=== PATIENT | male | born 1995 | race Caucasian/White ===

== ENCOUNTER 2024-06-12 20:13 | Emergency (ER) | payer OTHER, SELFPAY ==
[2024-06-12 20:17] VITALS: BP 130/80
[2024-06-12 20:32] LABS: % Basophils 0.6 % (0-2); % Eosinophils 0.6 % (0-6); % Immature Granulocytes 0.4 % (0-0.5); % Lymphocytes 26.7 % (20.5-51.1); % Monocytes 6.2 % (1.7-9.3); % Neutrophils 65.5 % (42.2-75.2); Absolute Basophils 0.1 10^3/uL (0-0.2); Absolute Eosinophils 0.1 10^3/uL (0-0.7); Absolute Lymphocytes 2.9 10^3/uL (1.2-3.4); Absolute Monocytes 0.7 10^3/uL (0.1-0.6); Absolute Neutrophils 7.2 10^3/uL (1.4-6.5); Hematocrit 42.9 % (39.0-52.0); Hemoglobin 14.9 g/dL (13.0-18.0); Mean Corp Hgb Conc. 34.7 g/dL (33.0-37.0); Mean Corpuscular Hgb 27.6 pg (27.0-31.0); Mean Corpuscular Volume 79.4 fL (80.0-94.0); Mean Platelet Volume 9.4 fL (7.4-10.4); Nucleated Red Blood Cells % 0 % (-); Platelet Count 310 10^3/uL (130-400); Red Cell Dist. Width 14.5 % (11.5-14.5)
[2024-06-12 20:45] LABS: ALT (SGPT) 14 U/L (0-50); AST (SGOT) 18 U/L (17-59); Albumin 5.1 g/dl (3.5-5.0); Alkaline Phosphatase 89 U/L (38-126); Blood Urea Nitrogen 28 mg/dl (9-20); Calcium 10.5 mg/dl (8.4-10.2); Carbon Dioxide 24 mmol/L (22-30); Chloride 101 mmol/L (98-107); Glucose 95 mg/dl (70-99); Lipase 114 U/L (23-300); Potassium 3.9 mmol/L (3.5-5.1); Sodium 139 mmol/L (135-145); Total Bilirubin 1.1 mg/dl (0.2-1.3); eGFR > 60.00
--- NOTE | 2024-06-12 22:53 | ED.GENMED ---
History of Present Illness
<LILIANA Marie (Lenka) - Last Filed: 06/12/24 23:37>
General
Chief Complaint: Dehydration Symptoms
Source: patient and family (uncle)
Exam Limitations: none
Time Seen by Provider: 06/12/24 22:07
Nursing documentation reviewed up to this point in time: agreed with
History of Present Illness
History of Present Illness:
Pt is a 28 yo male with PMHx of bipolar who presents to the ED for dehydration and N/V x 48 hours. Per pt, 2d ago he got sushi takeout with his family and a few hours later developed nausea and NBNB emesis, non-bloody diarrhea, and abdominal
cramping that has been unrelenting. He states that he has been unable to keep Gatorade, water, or food down without vomiting. The diarrhea lasted the first day, but now pt has not passed stool or urinated x 24 hours. He has been burping, but has not
passed gas. His abdominal pain is dull and diffuse throughout all 4 quadrants. He admits to new onset blurry vision x 48 hrs. He denies rash, fever, chills, myalgias, throat pain, throat fullness, chest pain, back or flank pain. His aunt, who also
ate the sushi, intiially had similar symptoms which have since resolved.
Past History
<LILIANA Marie (Lenka) - Last Filed: 06/12/24 23:37>
Past History
ED Past Medical History: Psychiatric (Bipolar disease, takes Lamictal, Wellbutrin, Concerta and Vraylar) and Other ('skinny esophagus')
ED Past Surgical History: None
Social History
Tobacco: Non-smoker
Alcohol: Occasional
Drug: None
Living: with family
Employment: Not employed
Family History
Family History: Other (noncontributory)
Phy Exam
<LILIANA Marie (Lenka) - Last Filed: 06/12/24 23:37>
General Physical Exam
General Presentation: mild distress
General age: appears stated age
General Skin: warm, dry and ashen
General Habitus: normal
General Mental: alert
General Hydration: dry mucous membranes
Cardiovascular Exam
Cardiovascular Exam: regular rate/rhythm, no edema, no gallop, no murmur and normal peripheral pulses
Pulmonary Exam
Pulmonary Exam: lungs clear, no respiratory distress, no rales, no rhonchi, no wheezing and no cough
Gastrointestinal Exam
Gastrointestinal Exam: normal bowel sounds, soft, non distended and tender (diffuse tenderness to all four quadrants)
Neurological Exam
Neurological Exam: alert, oriented x3 and speech normal
Skin Exam
Skin Exam: no rash
Course
<Gina Dawson (Lenka) [facility] - Last Filed: 06/12/24 23:37>
Orders/Labs/Results
Orders:
Orders
06/12/24 20:24
CMP [Comprehensive Metabolic Panel] Urgent
Complete Blood Count/With Diff Urgent
Lipase Urgent
06/12/24 22:47
Ondansetron Injectable [Zofran] 4 mg .ROUTE .STK-MED ONE
06/12/24 23:31
Ondansetron Injectable [Zofran] 4 mg IV NOW STA
Abnormal Lab Results
06/12/24
20:24
WBC 11.0 H 10^3/uL
(4.8-10.8)
MCV 79.4 L fL
(80.0-94.0)
Absolute Neuts (auto) 7.2 H 10^3/uL
(1.4-6.5)
Absolute Monos (auto) 0.7 H 10^3/uL
(0.1-0.6)
BUN 28 H mg/dl
(9-20)
Calcium 10.5 H mg/dl
(8.4-10.2)
Albumin 5.1 H g/dl
(3.5-5.0)
06/12/24 20:24
06/12/24 20:24
Vital Signs
Initial and Last Documented VS:
Initial Vital Signs
Temp Pulse Resp BP Pulse Ox
98.1 F 110 22 130/80 98
06/12/24 20:17 06/12/24 20:17 06/12/24 20:17 06/12/24 20:17 06/12/24 20:17
Last Documented Vital Signs
Temp Pulse Resp BP Pulse Ox
98.1 F 110 22 130/80 98
06/12/24 20:17 06/12/24 20:17 06/12/24 20:17 06/12/24 20:17 06/12/24 20:17
<Kasi Cervantes, DO - Last Filed: 06/13/24 01:40>
Orders/Labs/Results
Orders:
Orders
06/12/24 20:24
CMP [Comprehensive Metabolic Panel] Urgent
Complete Blood Count/With Diff Urgent
Lipase Urgent
06/12/24 22:47
Ondansetron Injectable [Zofran] 4 mg .ROUTE .STK-MED ONE
06/12/24 23:31
Ondansetron Injectable [Zofran] 4 mg IV NOW STA
Abnormal Lab Results
06/12/24
20:24
WBC 11.0 H 10^3/uL
(4.8-10.8)
MCV 79.4 L fL
(80.0-94.0)
Absolute Neuts (auto) 7.2 H 10^3/uL
(1.4-6.5)
Absolute Monos (auto) 0.7 H 10^3/uL
(0.1-0.6)
BUN 28 H mg/dl
(9-20)
Calcium 10.5 H mg/dl
(8.4-10.2)
Albumin 5.1 H g/dl
(3.5-5.0)
06/12/24 20:24
06/12/24 20:24
Vital Signs
Initial and Last Documented VS:
Initial Vital Signs
Temp Pulse Resp BP Pulse Ox
98.1 F 110 22 130/80 98
06/12/24 20:17 06/12/24 20:17 06/12/24 20:17 06/12/24 20:17 06/12/24 20:17
Last Documented Vital Signs
Temp Pulse Resp BP Pulse Ox
98.1 F 110 22 130/80 98
06/12/24 20:17 06/12/24 20:17 06/12/24 20:17 06/12/24 20:17 06/12/24 20:17
<LILIANA Marie (Lenka) - Last Filed: 06/12/24 23:37>
MDM/Problems Addressed
Differential Diagnosis Includes:
DDx: viral vs bacterial vs parasitic gastroenteritis vs hypercalcemia
Given the onset of sx after consuming sushi and family contact with similar symptoms, plus watery diarrhea, N/V, inability to maintain PO intake or hydration, pt likely has gastritis. Since the diarrhea with nonbloody, there is less concern for
salmonella or shiga-toxin e.coli.
Labs notable for: WBC 11.0, BUN 28, calcium 10.5, albumin 5.1
Plan to rehydrate pt with NS IVF and IV zofran.
<LILIANA Marie (Lenka) - Last Filed: 06/12/24 23:37>
*Critical Care Note
Total Time (30-74mins, 75-104mins- exclusive of procedures): Not Applicable
<Gina Baldwin (Lenka)uslawski, STPA - Last Filed: 06/12/24 23:37>
Update Note
Update Note:
2337 - nausea mildly improved after zofran, no emesis since initiation of IVF
ED Attending Note
<Gina Horn) LILIANA Dawson - Last Filed: 06/12/24 23:37>
-
Portions of this chart may have been created with voice recognition software.� Occasional wrong word or��sound alike� substitutions may have occurred due to the inherent limitations of voice recognition software.
<Kasi Cervantes DO - Last Filed: 06/13/24 01:40>
ED Attending Note
Patient seen and examined by attending physician: Yes
I performed the substantive portion of visit, reviewed & personally made and approve the management plan that is documented in note by myself or RAND.: Yes
ED Attending Note:
Pleasant 28-year-old male presents with nausea and vomiting for the last 48 hours. Patient got sushi several hours prior to the onset of symptoms. He states that another family member had the same sushi and had identical symptoms. Patient was not
unable to keep anything down. He did have abdominal spasming throughout his abdomen. Denies fever, chills, chest pain, or shortness of breath. Patient was seen in conjunction with the PA student. I have reviewed and agree with the history and
treatment plan presented. On my independent physical exam, patient is awake, alert, and oriented x3, minimal acute distress after receiving Zofran and a liter of fluids. Heart is regular rate rhythm. Lungs are clear to auscultation bilaterally.
Abdomen is soft with generalized tenderness throughout the abdomen. No pinpoint tenderness specifically negative Buck sign. Negative McBurney's point tenderness.
Plan is to continue to hydrate. P.o. challenge.
Discharge Plan
Departure
Patient Disposition: Home (Routine Discharge)
Date of Disposition: 06/13/24
Time of Disposition: 01:40
Patient with high blood pressure during this ER visit?: Yes
Condition: Good
Discharge Problem:
Nausea & vomiting
Instructions: Clear Liquid Diet, [place] Diet, Nausea and Vomiting, Adult (DC), BLOOD PRESSURE
Prescriptions:
New
ondansetron 4 mg tablet,disintegrating
4 mg PO Q8H PRN (Reason: nausea and vomiting) 4 Days Qty: 10 0RF
No Action
lamotrigine [Lamictal] 200 MG tablet
300 mg PO DAILY
benztropine 1 MG tablet
1 mg PO BID
bupropion HCl 300 MG tablet extended release 24 hr
300 mg PO DAILY
Referrals:
Claus Lipscomb DO [Family Provider] -
Activity Restrictions/Additional Instructions:
It was a pleasure meeting you and taking part in your care. We hope for your continued healing and wellness.
Please read discharge instructions in their entirety. However, they are for general education and may not describe your exact diagnosis at discharge. Information on your ER visit and medical conditions were discussed with you along with appropriate
follow up information...
If indicated, please take your medications as instructed and indicated on discharge paperwork.
Please schedule a follow up appointment as directed. Call to schedule an appointment
Please return to the emergency department with ANY change in, persisting, or worsening of symptoms. If any of your symptoms do not improve, or persist, or become more severe within 6-12 hours, please return to the emergency department for further
care.
Please return to the emergency department if you develop a headache, neck pain/stiffness, fever greater than 100.4F, chest pain, shortness of breath, persistent nausea, vomiting, slurred speech, difficulty walking, numbness/tingling, weakness, signs
of infection or any other symptoms that are worrisome to you.
If you have any questions or concerns please do not hesitate to call the Hospital at or E-mail me directly at [email or web address]
Interventions
Interventions:
*Risk Screen - Suicide Last Done: 06/12/24 20:17
*General Assessment Last Done: 06/12/24 23:04
*Neglect/Abuse Screening Last Done: 06/12/24 20:17
UY-Scjqeu-Nczbdapjbx Assessment Last Done: 06/12/24 23:03
ED- Cardiac Assessment Last Done: 06/12/24 23:03
ED- Neurological Assessment Last Done: 06/12/24 23:03
ED- Pulmonary Assessment Last Done: 06/12/24 23:03
Discharge Date and Time
Print Language: TELUGU
[2024-06-12] MEDS: ZOFRAN 4 MG IV (23:31)
[2024-06-13 02:00] VITALS: BP 122/88
== END 2024-06-13 02:39 | disposition home or self-care (01) ==
LOC: EMR 20:13
PROVIDERS: Emergency Medicine; EMERGENCY PHYSICIAN Student in an Organized Health Care Education/Training Program; FAMILY PHYSICIAN Family Medicine
DX: R11.2 Nausea with vomiting, unspecified (principal); R10.9 Unspecified abdominal pain; R19.7 Diarrhea, unspecified; H53.8 Other visual disturbances; R03.0 Elevated blood-pressure reading, without diagnosis of hypertension; F31.9 Bipolar disorder, unspecified; F41.9 Anxiety disorder, unspecified; F32.A Depression, unspecified; Z86.16 Personal history of COVID-19; Z79.899 Other long term (current) drug therapy; Z91.018 Allergy to other foods
CPT/HCPCS: 99284; 96374; 80053; 83690; 85025

== ENCOUNTER 2025-08-06 08:20 | Emergency (ER) | payer OTHER, SELFPAY ==
[2025-08-06 08:31] VITALS: BP 137/80
--- NOTE | 2025-08-06 09:14 | ED.GENMED ---
History of Present Illness
General
Chief Complaint: Abdominal Symptoms
Source: patient
Exam Limitations: none
Time Seen by Provider: 08/06/25 08:56
History of Present Illness
History of Present Illness:
30-year-old male relatively sudden onset of right lower quadrant pain to the groin and right testicle. Started at 4:30 AM. Associated with nausea. No dysuria frequency. No fever or chills. No radiation to the back. No history of similar pain.
Past History
Past History
ED Past Medical History: Psychiatric (Bipolar disease, takes Lamictal, Wellbutrin, Concerta and Vraylar) and Other ('skinny esophagus')
ED Past Surgical History: Orthopedic and Other ([place] teeth/)
Social History
Tobacco: Non-smoker
Alcohol: Occasional
Drug: None
Living: with family
Employment: Not employed
Family History
Family History: Other (noncontributory)
Review of Systems
Review of Systems
All Other Systems: Not applicable
Constitutional: Denies fever or chills
ABD/GI: Denies diarrhea
: Denies dysuria
Phy Exam
Physical Exam
Physical Exam:
GENERAL: Alert and oriented in no apparent distress
EYE: Orbits normal.
NECK: Supple
CARDIAC: Regular rate and rhythm without any obvious murmurs.
LUNGS: Clear breath sounds,normal
ABDOMEN: Soft, no CVA tenderness. No rebound or guarding no mass or hernia. Moderate tenderness right lower quadrant. No hernia.
: Testicles appear normal. Not high riding no swelling no erythema.
NEUROLOGICAL: Alert and oriented , grossly non-focal
SKIN: Warm and dry, no rash or lesion, no discoloration, skin intact.
MUSCULOSKELETAL: No edema,no deformity.Good color
PSYCH: Normal and appropriate interaction.
Course
Orders/Labs/Results
Orders:
Orders
08/06/25 09:13
IV Insert/Care/Rem.- Treatment PRN
0.9% Sodium Chloride 500 ml [Nss] 500 ml IV BOLUS
Ketorolac [Toradol] 15 mg IV NOW STA
08/06/25 09:24
Complete Blood Count/With Diff Urgent
Comprehensive Metabolic Panel Urgent
Lipase Urgent
Urinalysis Reflex To Culture Urgent
Date Specimen was Collected: 08/06/25
Time Specimen was Collected: 09:17
Urine Microscopic Reflex Cult Urgent
Urine Culture Urgent
TAD Source: U
Specimen Description:
Date Specimen was Collected: 08/06/25
Time Specimen was Collected: 09:17
08/06/25 10:07
CT Abd/pel Without Iv Or Oral Urgent
Comment:
Reason For Exam: Right groin pain radiating to testicle
Abnormal Lab Results
08/06/25
09:24
BUN 25 H mg/dl
(9-20)
Ur Occult Blood Reflex 3+ A
(Negative)
Leukocyte Esterase Rfl 1+ A
(Negative)
Urine RBC 16-20 A /HPF
(0-2)
Urine Albumin (Reflex) 2+ A
(Neg - Trace)
08/06/25 09:24
08/06/25 09:24
Vital Signs
Initial and Last Documented VS:
Initial Vital Signs
Temp Pulse Resp BP Pulse Ox
98.1 F 71 16 137/80 98
08/06/25 08:31 08/06/25 08:31 08/06/25 08:31 08/06/25 08:31 08/06/25 08:31
Last Documented Vital Signs
Temp Pulse Resp BP Pulse Ox
98.1 F 84 20 119/74 99
08/06/25 08:31 08/06/25 12:39 08/06/25 12:39 08/06/25 12:39 08/06/25 12:39
MDM/Problems Addressed
Differential Diagnosis Includes:
Right lower quadrant pain relatively sudden onset radiating to the testicle. Differential would be kidney stone, atypical appendicitis, doubt primary testicle issue although if other workup is negative would consider ultrasound. Workup in progress
*Radiology
Radiology exam reviewed: radiology read reviewed (4 mm stone right UVJ with mild to moderate hydro. 2 nonobstructing stones. Incidental nodule)
*Pulse Oximetry
SaO2: 98
Oxygen Mode of Delivery: Room air
Patient hypoxic: no
*Critical Care Note
Total Time (30-74mins, 75-104mins- exclusive of procedures): Not Applicable
Update Note
Update Note:
Patient given copy of CT report. Will follow-up nodule. Medically stable for discharge.
ED Attending Note
-
Portions of this chart may have been created with voice recognition software.� Occasional wrong word or��sound alike� substitutions may have occurred due to the inherent limitations of voice recognition software.
Discharge Plan
Departure
Patient Disposition: Home (Routine Discharge)
Date of Disposition: 08/06/25
Time of Disposition: 11:42
Patient with high blood pressure during this ER visit?: Yes
Discharge Problem:
4 mm obstructing right ureteral kidney s, Incidental pulmonary nodule
Instructions: Pulmonary nodule, Kidney stones in adults - ED (DC), BLOOD PRESSURE
Prescriptions:
New
tamsulosin [Flomax] 0.4 mg capsule
0.4 mg PO DAILY Qty: 14 0RF
No Action
lamotrigine [Lamictal] 200 MG tablet
300 mg PO DAILY
benztropine 1 MG tablet
1 mg PO BID
bupropion HCl 300 MG tablet extended release 24 hr
300 mg PO DAILY
ondansetron 4 mg tablet,disintegrating
4 mg PO Q8H PRN (Reason: nausea and vomiting) 4 Days Qty: 10 0RF
Referrals:
Manuel Rai MD [Active, Urology] - Follow up in 5-7 days
Claus Lipscomb DO [Family Provider, Family Practice]
Activity Restrictions/Additional Instructions:
The prescription was sent to your pharmacy. Take 1 pill at bedtime
Advil or Motrin for pain. You could also add Tylenol
Stay well-hydrated
Follow-up the pulmonary nodule
Return with progressive or unremitting pain or return immediately with any infectious symptoms
Interventions
Interventions:
*Risk Screen - Suicide Last Done: 08/06/25 08:31
*General Assessment Last Done: 08/06/25 09:36
*Neglect/Abuse Screening Last Done: 08/06/25 08:31
*ED COVID-19 Vaccine History Last Done: 08/06/25 09:36
*ED Influenza Vaccine History Last Done: 08/06/25 09:36
*Nursing Disposition Last Done: 08/06/25 12:39
[facility]-Abokxv-Erhwnzisif Assessment Last Done: 08/06/25 09:36
Discharge Date and Time
Discharge Date/Time: 08/06/25 12:40
Print Language: IRANIAN
[2025-08-06] MEDS: NSS 500 IV (09:21)
[2025-08-06] MEDS: TORADOL 15 MG IV (09:21)
[2025-08-06 09:34] LABS: Hematocrit 41.2 % (39.0-52.0); Hemoglobin 13.8 g/dL (13.0-18.0); Mean Corp Hgb Conc. 33.5 g/dL (33.0-37.0); Mean Corpuscular Volume 84.9 fL (80.0-94.0); Nucleated Red Blood Cells % 0 % (-); Platelet Count 230 10^3/uL (130-400); Red Cell Dist. Width 13.1 % (11.5-14.5)
[2025-08-06 09:35] LABS: Urine Character Clear (Clear)
[2025-08-06 09:48] LABS: ALT (SGPT) 18 U/L (0-50); AST (SGOT) 20 U/L (17-59); Albumin 4.6 g/dl (3.5-5.0); Alkaline Phosphatase 91 U/L (38-126); Blood Urea Nitrogen 25 mg/dl (9-20); Calcium 9.3 mg/dl (8.4-10.2); Carbon Dioxide 26 mmol/L (22-30); Chloride 107 mmol/L (98-107); Glucose 98 mg/dl (70-99); Lipase 84 U/L (23-300); Potassium 4.4 mmol/L (3.5-5.1); Sodium 140 mmol/L (135-145); Total Protein 7.4 g/dl (6.3-8.2); eGFR > 60.00
[2025-08-06 10:00] VITALS: BP 111/72
[2025-08-06 10:21] LABS: Urine Squamous Cell 0-2 /LPF (Few)
[2025-08-06 10:22] LABS: Urine Red Blood Cell 16-20 /HPF (0-2); Urine White Cell 0-2 /HPF (0-5)
[2025-08-06 12:39] VITALS: BP 119/74
== END 2025-08-06 12:40 | disposition home or self-care (01) ==
LOC: EMR 08:20
PROVIDERS: EMERGENCY PHYSICIAN Emergency Medicine; FAMILY PHYSICIAN Family Medicine
DX: N36.8 Other specified disorders of urethra (principal); R91.1 Solitary pulmonary nodule; F31.9 Bipolar disorder, unspecified
CPT/HCPCS: 99284; 96374; 96361; 74176; 80053; 81003; 81015; 83690; 85025; 87086